=== PATIENT | male | born 1950 | race Caucasian/White ===

== ENCOUNTER 2019-07-02 05:44 | Inpatient (IN) | payer MEDICARE, OTHER ==
[~2019-07-02] VITALS: Ht 182.9 cm; Wt 95.3 kg
[2019-07-02] MEDS ORDERED: Aspir 8181 MG PO (05:56)
[2019-07-02] MEDS ORDERED: WATER PILL? (05:57)
[2019-07-02 06:20] LABS: BASOPHILS ABSOLUTE AUTO 0.03 K/mm3 (0.00-0.23); BASOPHILS PERCENT AUTO 0 % (0-2); EOSINOPHILS ABSOLUTE AUTO 0.03 K/mm3 (0.00-0.68); EOSINOPHILS PERCENT AUTO 0 % (0-6); Hematocrit 39.2 % (37.0-53.0); Hemoglobin 12.7 g/dL (13.5-17.5); IMMATURE GRAN ABSOLUTE AUTO 0.04 K/mm3 (0.00-0.10); IMMATURE GRAN PERCENT AUTO 1 % (0-1); LYMPHOCYTES ABSOLUTE AUTO 3.94 K/mm3 (0.84-5.20); LYMPHOCYTES PERCENT AUTO 51 % (21-46); MONOCYTES ABSOLUTE AUTO 0.57 K/mm3 (0.16-1.47); MONOCYTES PERCENT AUTO 7 % (4-13); Mean Corpuscular HGB Conc 32.4 g/dL (31.5-36.5); Mean Corpuscular Volume 96 fL (80-100); Mean Platelet Volume 9.6 fL (9.1-12.4); NEUTROPHILS ABSOLUTE AUTO 3.16 K/mm3 (1.96-9.15); NEUTROPHILS PERCENT AUTO 41 % (41-73); Platelet Count 255 K/mm3 (150-400); RDW Coefficient Variation 13.2 % (11.7-14.2); RDW Standard Deviation 46.4 fL (35.1-46.3); White Blood Cell Count 7.77 K/mm3 (4.00-11.30)
[2019-07-02 06:25] LABS: Calcium, Ionized (POC) 1.05 mmol/L (1.10-1.46); Chloride (POC) 103 mmol/L (98-108); Creatinine (POC) 0.9 mg/dL (0.8-1.3); Glucose (ISTAT POC) 220 mg/dL (70-99); Hemoglobin (POC) 11.2 g/dL (13.5-17.5); Sodium (POC) 135 mmol/L (135-148); Total CO2 (POC) 23 mmol/L (21-32)
[2019-07-02 06:40] LABS: Alanine Aminotransfer (ALT/SGP 42 U/L (12-78); Albumin, Blood 2.4 g/dL (3.4-5.0); Albumin/Globulin Ratio 0.7 (0.8-1.8); Alk Phos 45 U/L (50-136); Anion Gap 10 mmol/L (6-16); Aspartate Aminotrans (AST/SGOT 21 U/L (12-37); Bilirubin, Total 0.4 mg/dL (0.1-1.0); Blood Urea Nitrogen 33 mg/dL (8-24); Bun/Creatinine Ratio 42.9 (12.0-20.0); CO2, Blood 24 mmol/L (21-32); Chloride, Blood 106 mmol/L (98-108); Creatinine, Blood 0.77 mg/dL (0.60-1.20); Globulin, Blood 3.4 g/dL (2.2-4.0); Glomerular Filtration Rate >60 (60-); Glucose, Blood 240 mg/dL (70-99); Potassium, Blood 4.1 mmol/L (3.5-5.5); Sodium, Blood 140 mmol/L (136-145); Total Protein, Blood 5.8 g/dL (6.4-8.2)
--- NOTE | 2019-07-02 08:40 | NUR ---
echocardiogram completed
[2019-07-02 10:04] LABS: International Normalized Ratio 1.08; Prothrombin Time Results 11.4 Sec (9.7-11.5)
[2019-07-02 12:17] LABS: U Amphetamine Screen Not Detected; U Barbituate Screen Not Detected; U Benzodiazapine Screen Not Detected; U Buprenorphine Screen Not Detected; U Cannabinoids Screen DETECTED; U Cocaine Screen Not Detected; U Methadone Screen Not Detected; U Methamphetamine Screen Not Detected; U Opiates Screen Not Detected; U Oxycodone Screen Not Detected; U Phencyclidine Screen Not Detected; U Propoxyphene Screen Not Detected
[2019-07-02 12:37] LABS: Creatine Kinase MB 1.7 ng/mL (0.0-3.6); Troponin I 0.049 ng/mL (0.000-0.040)
[2019-07-02 13:20] LABS: Adenovirus F 40/41 Not Detected (NOT DETECT); Astrovirus Not Detected (NOT DETECT); Campylobacter Sp Not Detected (NOT DETECT); Cryptosporidium Not Detected (NOT DETECT); Cyclospora Cayetanensis Not Detected (NOT DETECT); E. Coli O157 Not Detected (NOT DETECT); Entamoeba Histolytica Not Detected (NOT DETECT); Enteroaggregative E. coli-EAEC Not Detected (NOT DETECT); Enteropathogenic E. coli-EPEC Detected (NOT DETECT); Enterotoxigenic E. coli-ETEC Not Detected (NOT DETECT); Giardia Lamblia Not Detected (NOT DETECT); Norovirus GI/GII Not Detected (NOT DETECT); Plesiomonas Shigelloides Not Detected (NOT DETECT); Rotavirus A Not Detected (NOT DETECT); Salmonella Sp Not Detected (NOT DETECT); Sapovirus Not Detected (NOT DETECT); Shiga Toxin-prod E. coli-STEC Not Detected (NOT DETECT); Shigella/Enteroin E. coli-EIEC Not Detected (NOT DETECT); Vibrio Cholerae Not Detected (NOT DETECT); Vibrio Sp Not Detected (NOT DETECT); Yersinia Enterocolitica Not Detected (NOT DETECT)
--- NOTE | 2019-07-02 16:20 | NUR ---
SHIFT SUMMARY: PT HAS BEEN RESTING IN BED SINCE ADMIT. hE GOT UP ONCE TO USE THE TOILET AND DENIED ANY DIZZINESS OR WEAKNESS WHEN SITTING OR STANDING UP. HIS HR REMAINS SR, RATE IN THE 90-LOW 100S, BP STABLE WITH SBP 90S AND SBP 70S. EATING WELL. VOIDING IN THE URINAL. NO OTHER REQUESTS AT THIS TIME. CONTINUING TO MONITOR.
--- NOTE | 2019-07-02 18:56 | NUR ---
PT HAS REMAINED NORMOTENSIVE AND HR CONTROLLED. DR. MORENO OK'D PT TO BE MED WITH TELE.
--- NOTE | 2019-07-02 21:32 | NUR ---
START OF SHIFT: REPORT FROM ERIKA GILLESPIE. PT A+O X4, VSS, SIT/SINUS RHYTHM HR 86-102. PT SITTING UP WATCHING TV AT START OF SHIFT, LATER LYING DOWN SLEEPING. PT DENIED PAIN WITH C/O HEART BURN LATER IN SHIFT. PT TEACHING TO SIT UPRIGHT TO HELP RELEIVE HEART BURN. PT STATED TAKES PRILOSEC OUTSIDE OF HOSPITAL. SCHOOL AGE LEAD TEACHER REMAINED AT BEDSIDE AND TRANSFERRED WITH PT TO MEDICAL FLOOR. REPORT CALLED TO ES GILLESPIE PRIOR TO PT TRANSFER. PT MEDICATED WITH SCHEDULED AMIODARONE AND ZOFRAN TO HELP RELIEVE HB AND SLIGHT NAUSEA PRIOR TO TRANSFER TO MEDICAL FLOOR.
--- NOTE | 2019-07-02 21:45 | NUR ---
TRANSFER TO RM 336 PT TRANSFERRED TO 336 VIA WHEELCHAIR WITH HEART MONITOR ATTACHED AND FORM SETTER HELPER AT MY SIDE. PT FEELING SICK TO STOMACH AND IS DIAPHORETIC. ONCE WE GOT HIM INTO RM 336, HE GOT UP TO THE TOILET AND HAD BLACK LIQUID STOOL OUT. ERIKA Coleman; PCU CULLET CRUSHER STATES THE HR ST WITH PVC'S. CALLED LISY MANCINI WITH NEW ORDERS AND PT TO TRANSFER BACK TO ICU PCU STATUS.
[2019-07-02 22:23] LABS: BASOPHILS ABSOLUTE AUTO 0.02 K/mm3 (0.00-0.23); BASOPHILS PERCENT AUTO 0 % (0-2); EOSINOPHILS ABSOLUTE AUTO 0.02 K/mm3 (0.00-0.68); EOSINOPHILS PERCENT AUTO 0 % (0-6); Hematocrit 26.2 % (37.0-53.0); Hemoglobin 8.4 g/dL (13.5-17.5); IMMATURE GRAN ABSOLUTE AUTO 0.03 K/mm3 (0.00-0.10); IMMATURE GRAN PERCENT AUTO 0 % (0-1); LYMPHOCYTES ABSOLUTE AUTO 4.78 K/mm3 (0.84-5.20); LYMPHOCYTES PERCENT AUTO 58 % (21-46); MONOCYTES ABSOLUTE AUTO 0.78 K/mm3 (0.16-1.47); MONOCYTES PERCENT AUTO 9 % (4-13); Mean Corpuscular HGB 31.9 pg (26.0-34.0); Mean Corpuscular HGB Conc 32.1 g/dL (31.5-36.5); Mean Corpuscular Volume 100 fL (80-100); Mean Platelet Volume 9.2 fL (9.1-12.4); NEUTROPHILS ABSOLUTE AUTO 2.69 K/mm3 (1.96-9.15); NEUTROPHILS PERCENT AUTO 32 % (41-73); Platelet Count 209 K/mm3 (150-400); RDW Coefficient Variation 13.2 % (11.7-14.2); RDW Standard Deviation 48.4 fL (35.1-46.3); Red Blood Cell Count 2.63 M/mm3 (4.30-5.90); White Blood Cell Count 8.32 K/mm3 (4.00-11.30)
--- NOTE | 2019-07-02 22:23 | NUR ---
TRANSFER NOTE PT ARRIVED TO THE FLOOR AT 2145 VIA WHEELCHAIR ACCOMPANIED BY DOCUMENTATION ANALYST. PT WAS DIAPHORETIC AND TACHYPNIC UPON ARRIVAL. DOCUMENTATION ANALYST CALLED PHYSICIAN, VITALS WERE OBTAINED AND CHARTED. TELE NOTIFIED US THAT PT WAS TACHYCARDIC WITH "A LOT OF PVCS". PT COMPLAINED OF NEEDING THE TOILET. PT AMUBLATED TO THE TOILET AND HAD A BLACK, LOOSE BM. THIS RN NOTIFIED DOCUMENTATION ANALYST WHO RELAYED IT TO THE PHYSICIAN. DECISION WAS MADE TO SEND PT BACK UP TO ICU. PT WAS TAKEN BACK DOWN STAIRS TO ICU.
[2019-07-02 22:37] LABS: International Normalized Ratio 1.27; Prothrombin Time Results 13.2 Sec (9.7-11.5)
[2019-07-02 22:41] LABS: Anion Gap 7 mmol/L (6-16); Blood Urea Nitrogen 48 mg/dL (8-24); Bun/Creatinine Ratio 70.3 (12.0-20.0); CO2, Blood 26 mmol/L (21-32); Calcium, Blood 7.3 mg/dL (8.5-10.1); Chloride, Blood 111 mmol/L (98-108); Creatinine, Blood 0.68 mg/dL (0.60-1.20); Glomerular Filtration Rate >60 (60-); Glucose, Blood 187 mg/dL (70-99); Potassium, Blood 3.9 mmol/L (3.5-5.5); Sodium, Blood 144 mmol/L (136-145); Troponin I 0.045 ng/mL (0.000-0.040)
--- NOTE | 2019-07-02 23:09 | NUR ---
UPDATE: PT TAKEN TO 3RD FLOOR VIA W/C WITH IMPLEMENTATION CONSULTANT TARYN TRANSFERRING. PT APPARENTLY BECAME DIAPHORETIC, PALE, AND WITH SIT HR IN THE 120'S WITH SEVERAL PVC'S. PER TARYN RN, PT HAD BM WHILE IN ROOM 336 AND WAS BLACK BUT WAS IN TOILET SO WAS NOT SENT. HOSPITALIST NOTIFIED WHILE PT ON THIRD FLOOR AND WAS READMITTED TO ICU FOR GI BLEED. ONCE IN ICU ROOM 1, HOSPITALIST LISY CAME TO BEDSIDE AND PERFORMED GUIAC STOOL WHICH WAS POSITIVE. EKG DONE AND REPORTED TO HOSPITALIST, LABS DRAWN, FLUID BOLUS NS 500mL GIVEN, AND PROTONIX BOLUS AND gtt GIVEN. PT C/O SOME ABDOMINAL PAIN BUT DENIED CP. PT CURRENLTY SLEEPING, VSS, BUFFING AND SUEDING MACHINE OPERATOR REMAINS AT BEDSIDE.
--- NOTE | 2019-07-02 23:42 | NUR ---
HOSPITALIST NOTIFIED: RE LAB RESULTS, NO NEW ORDERS AT THIS TIME.
--- NOTE | 2019-07-03 02:55 | NUR ---
HOSPITALIST NOTIFIED: PT C/O INCREASED ABDOMINAL PRESSURE AND NAUSEA ALONG WITH URGENCY TO HAVE BM. WHILE ON PHONE WITH HOSPITALIST, PT WITH MAROON EMESIS OUT. FILTRATION SUPERVISOR IN ROOM. HOSPITALIST PLACING ORDERS. GIVE SECOND UNIT OF PRBC AND CONTINUE WITH H&H AND AM LABS. NEW ORDERS TO CHANGE ODT ZOFRAN TO IV AND TO GIVE FIRST PRIOR TO REGLAN.
[2019-07-03 03:50] LABS: BASOPHILS ABSOLUTE AUTO 0.01 K/mm3 (0.00-0.23); BASOPHILS PERCENT AUTO 0 % (0-2); EOSINOPHILS PERCENT AUTO 0 % (0-6); Hematocrit 22.8 % (37.0-53.0); Hemoglobin 7.5 g/dL (13.5-17.5); IMMATURE GRAN ABSOLUTE AUTO 0.06 K/mm3 (0.00-0.10); IMMATURE GRAN PERCENT AUTO 1 % (0-1); LYMPHOCYTES PERCENT AUTO 27 % (21-46); MONOCYTES ABSOLUTE AUTO 0.41 K/mm3 (0.16-1.47); MONOCYTES PERCENT AUTO 5 % (4-13); Mean Corpuscular HGB 32.9 pg (26.0-34.0); Mean Corpuscular HGB Conc 32.9 g/dL (31.5-36.5); Mean Corpuscular Volume 100 fL (80-100); NEUTROPHILS ABSOLUTE AUTO 5.51 K/mm3 (1.96-9.15); NEUTROPHILS PERCENT AUTO 67 % (41-73); Platelet Count 181 K/mm3 (150-400); RDW Coefficient Variation 13.2 % (11.7-14.2); RDW Standard Deviation 48.2 fL (35.1-46.3); Red Blood Cell Count 2.28 M/mm3 (4.30-5.90); White Blood Cell Count 8.19 K/mm3 (4.00-11.30)
[2019-07-03 04:01] LABS: Anion Gap 9 mmol/L (6-16); Blood Urea Nitrogen 54 mg/dL (8-24); Bun/Creatinine Ratio 70.9 (12.0-20.0); CHOL/HDL RATIO 3.7; CO2, Blood 20 mmol/L (21-32); Chloride, Blood 114 mmol/L (98-108); Cholesterol 56 mg/dL (50-200); Creatinine, Blood 0.76 mg/dL (0.60-1.20); Glomerular Filtration Rate >60 (60-); Glucose, Blood 291 mg/dL (70-99); HDL Cholesterol 15 mg/dL (>39); LDL/HDL RATIO 1.4; Low Density Lipoprotein Chol 21 mg/dL (0-110); Magnesium, Blood 1.7 mg/dL (1.6-2.4); Phosphorus, Blood 2.2 mg/dL (2.5-4.9); Potassium, Blood 5.2 mmol/L (3.5-5.5); Sodium, Blood 143 mmol/L (136-145); Triglycerides 100 mg/dL (30-160); Very Low Density Lipoprot Chol 20 mg/dL (6-32)
--- NOTE | 2019-07-03 06:54 | NUR ---
DR. AVALOS AT BEDSIDE.
--- NOTE | 2019-07-03 08:30 | NUR ---
INITIAL ASSESSMENT PATIENT SLEEPING IN BED SOUNDLY UPON ENTERING ROOM. PATIENT ALERT AND ORIENTED X 4, AFEBRILE. PUPILS 7+ AND REACT BRISKLY TO LIGHT. PATIENT ON BEDREST HAS BEEN HAVING SYNCOPAL EPISODES PRIOR TO ADMIT AND WHEN GETTING OOB TO COMMODE DURING NIGHT PER DRUPAL DEVELOPER NURSE. PATIENT DENIES PAIN AT THIS TIME. PATIENT SATTING 90% AND GREATER ON RA. LUNGS CLEAR IN UPPER LOBES AND DIMINISHED IN LOWER LOBES. PATIENT IN SR WITH BBB. HR IN THE 90S. SBP IN THE 90S, MAP GREATER THAN 65. PULSES FAINT TO PALPATION. ANTIEMBOLISM STOCKINGS IN PLACE. ABDOMEN MILDLY DISTENDED, SOFT, WITH HYPERACTIVE BS. PATIENT STATES THAT "STOMACH FEELS TIGHT". PATIENT IS HAVING MAROON/ BLACK/ TARRY, LOOSE STOOLS THIS AM. PATIENT NPO FOR SCOPE TODAY. WNL- URINAL AT BEDSIDE. SCAB NOTED TO LOWER BACK, OTHERWISE SKIN C/D/I. NS TKO, AMIODARONE DRIP STARTED AT 1 MG/ MINUTE, PROTONIX AT 10 MLS/ HOUR. BED LOW, CALL LIGHT IN REACH. WILL CONTINUE TO MONITOR PATIENT FREQUENTLY THROUGHOUT SHIFT.
[2019-07-03 08:36] LABS: Hemoglobin 8.7 g/dL (13.5-17.5); Mean Corpuscular HGB 32.3 pg (26.0-34.0); Mean Corpuscular HGB Conc 33.5 g/dL (31.5-36.5); Mean Platelet Volume 9.8 fL (9.1-12.4); Platelet Count 177 K/mm3 (150-400); RDW Coefficient Variation 14.3 % (11.7-14.2); RDW Standard Deviation 50.1 fL (35.1-46.3); Red Blood Cell Count 2.69 M/mm3 (4.30-5.90); White Blood Cell Count 7.95 K/mm3 (4.00-11.30)
[2019-07-03 08:38] LABS: Mean Corpuscular Volume 97 fL (80-100)
--- NOTE | 2019-07-03 10:15 | NUR ---
DR. RENAETRATE IN TO SEE PATIENT.
--- NOTE | 2019-07-03 11:35 | NUR ---
PATIENT SLEEPING SOUNDLY IN BED. PATIENT AFEBRILE. NO PAIN/ DISCOMFORT NOTED. VITAL SIGNS STABLE. NO ACUTE CHANGES TO NOTE ON AT THIS TIME. WILL CONTINUE TO MONITOR.
[2019-07-03] MEDS ORDERED: METO100ER PO (11:38)
[2019-07-03] MEDS ORDERED: FURO40 PO (11:39)
[2019-07-03] MEDS ORDERED: LOSA25 PO (11:40)
--- NOTE | 2019-07-03 13:10 | NUR ---
PATIENT TAKEN FOR SCOPE BY OR NURSES.
--- NOTE | 2019-07-03 13:29 | NUR ---
INTO SDS VIA GURNEY. SKIN VERY PALE. PT REPORTS NAUSEA AND FEELING"LIKE MY STOMACH IS GOING TO EXPLODE. MED WITH REGLAN PER DR. HANSEN ORDER. NPO STATUS CONFIRMED. HISTORY AND ALLERGIES REWIEWED. LUNGS DIMINISHED IN THE BASES-SATS>90% ON RA. ECG SHOWS SR WITH RATE 80'S. AMIODARONE DRIP CONTINUES AT 1MG/MIN.
--- NOTE | 2019-07-03 14:01 | NUR ---
07/03/19 1401 Bony Gentile Bite Block PlacedPatient to ENDO 1MONITOR INTACT WITH CONTINUOUS PULSE OXIMETRY AND INTERMITTENT BP.O2 VIA N/C INTACT THROUGHOUT SEDATION/PROCEDURE.See Anesthesia record.
[2019-07-03 15:27] LABS: BASOPHILS ABSOLUTE AUTO 0.02 K/mm3 (0.00-0.23); BASOPHILS PERCENT AUTO 0 % (0-2); EOSINOPHILS PERCENT AUTO 0 % (0-6); Hematocrit 22.6 % (37.0-53.0); Hemoglobin 7.4 g/dL (13.5-17.5); IMMATURE GRAN ABSOLUTE AUTO 0.15 K/mm3 (0.00-0.10); IMMATURE GRAN PERCENT AUTO 1 % (0-1); LYMPHOCYTES PERCENT AUTO 38 % (21-46); MONOCYTES ABSOLUTE AUTO 0.88 K/mm3 (0.16-1.47); MONOCYTES PERCENT AUTO 8 % (4-13); Mean Corpuscular HGB 32.9 pg (26.0-34.0); Mean Corpuscular HGB Conc 32.7 g/dL (31.5-36.5); NEUTROPHILS ABSOLUTE AUTO 6.21 K/mm3 (1.96-9.15); NEUTROPHILS PERCENT AUTO 53 % (41-73); NRBC ABSOLUTE 0.02 K/mm3 (0.00-0.02); NRBC Auto 0.2 /100 WBC (0.0-0.2); RDW Coefficient Variation 14.8 % (11.7-14.2); RDW Standard Deviation 53.8 fL (35.1-46.3); Red Blood Cell Count 2.25 M/mm3 (4.30-5.90); White Blood Cell Count 11.66 K/mm3 (4.00-11.30)
[2019-07-03 15:42] LABS: Mean Corpuscular Volume 100 fL (80-100); Mean Platelet Volume 10.8 fL (9.1-12.4); Platelet Count 164 K/mm3 (150-400)
[2019-07-03 15:49] LABS: Alanine Aminotransfer (ALT/SGP 28 U/L (12-78); Albumin, Blood 1.9 g/dL (3.4-5.0); Albumin/Globulin Ratio 0.8 (0.8-1.8); Alk Phos 28 U/L (50-136); Anion Gap 9 mmol/L (6-16); Aspartate Aminotrans (AST/SGOT 35 U/L (12-37); Bilirubin, Total 0.3 mg/dL (0.1-1.0); Blood Urea Nitrogen 54 mg/dL (8-24); Bun/Creatinine Ratio 69.6 (12.0-20.0); CO2, Blood 19 mmol/L (21-32); Calcium, Blood 7.1 mg/dL (8.5-10.1); Chloride, Blood 117 mmol/L (98-108); Creatinine, Blood 0.78 mg/dL (0.60-1.20); Globulin, Blood 2.3 g/dL (2.2-4.0); Glomerular Filtration Rate >60 (60-); Glucose, Blood 296 mg/dL (70-99); Potassium, Blood 5.8 mmol/L (3.5-5.5); Sodium, Blood 145 mmol/L (136-145); Total Protein, Blood 4.2 g/dL (6.4-8.2)
[2019-07-03 16:23] LABS: International Normalized Ratio 1.19; Prothrombin Time Results 12.4 Sec (9.7-11.5)
[2019-07-03 17:28] LABS: Source, Urine Catheter
[2019-07-03 17:33] LABS: Bilirubin, Urine Neg (Neg); Blood, Urine Neg (Neg); Glucose Qualitative, Urine 4+ (Neg); Ketones, Urine 1+ (Neg); Leukocyte Esterase, Urine Neg (Neg); Nitrite, Urine Neg (Neg); Protein, Urine 1+ (Neg); Specific Gravity, Urine 1.015 (1.003-1.022); Urobilinogen, Urine NORM (Normal)
[2019-07-03 17:39] LABS: Appearance, Urine Clear (Clear); Color, Urine Yellow (P-Yellow)
--- NOTE | 2019-07-03 19:03 | NUR ---
SHIFT SUMMARY THIS AM, PATIENT A&O X 4, AFEBRILE. PATIENT PLEASANT AND COOPERATIVE. SATTING WELL ON RA, LUNGS CLEAR T/O. IN SR WITH BBB, HR 80S TO 90S. BP STABLE. PATIENT COMPLAINED OF ABDOMEN FEELING "TIGHT" AND HAD TWO LOOSE, BLACK/ MAROON/ TARRY STOOLS. PATIENT WAS VOIDING WELL INTO BEDSIDE URINAL. PATIENT NPO FOR PLANNED EGD PROCEDURE. PATIENT ON AMIO AT 1 MG/ MINUTE AND PROTONIX AT 10 MLS/ HOUR. PATIENT TAKEN TO EGD AROUND 1300. PATIENT ARRIVED BACK TO ICU AROUND 1450. DR. HANSEN REPORTS THAT NO INTERVENTIONS WERE PERFORMED AND THAT PATIENT VOMITED AND APPEARED TO HAVE ASPIRATED. PATIENT ON VENTILATOR WHEN ARRIVED- SETTINGS AC 14, TV 450, PEEP 5, 50% FIO2. NO SEDATION- PATIENT APPEARING TO NOT BE TOLERATING ETT WELL. PATIENT COUGHING CONSISTENTLY. RITA RED, THICK SPUTUM BEING SUCTIONED FROM MOUTH. THICK, MAROON BLOOD BEING SUCTIONED FROM ETT. LUNGS COARSE AND DIMINISHED T/O, EVEN AFTER SUCTIONING. PATIENT GIVEN 2MG VERSED TO HELP RELAX AND TOLERATE VENT. PROPOFOL ALSO STARTED. AGITATION AND INTOLERANCE CONTINUED, HOWEVER PATIENT BECAME HYPOTENSIVE. SEDATION PLACED ON STANDBY. NS GIVEN. PICC LINE STARTED BY SHIRLEY PRAKASH AND CHARGE NURSE, ALEJO STEWARD. LEVOPHED AND PROPOFOL STARTED. BETANCOURT PLACED AND DRAINING DARK YELLOW URINE. PATIENT RESTING QUIETLY IN BED AT THIS TIME. NO SIGNS OF PAIN. LEVOPHED AT 10 MCG/ MINUTE, PROPOFOL AT 50 MCG/ KG/ MINUTE, NS TKO, AMIODARONE AT 0.5 MG/ MINUTE, AND PROTONIX AT 10 MLS/ HOUR. BED LOW, CALL LIGHT IN REACH. REPORT HAS BEEN GIVEN TO ASSUMING NURSE, GIULIANA SEGURA.
--- NOTE | 2019-07-03 19:30 | NUR ---
ASSUMED CARE PT INTUBATED POST EGD WHERE PT HAD EPISODE OF EMESIS WITH ASPIRATION. CURRENT VENT SETTINGS AT AC14/450/5/50%. SEATION VIA PROPOFOL AT 50MCG/KG/MIN. PT RESPONDS TO NOXIOUS STIM BUT IS NOT CURRENTLY FOLLOWING COMMANDS. LEVOPHED AT 8MCG/MIN, AMIODARONE AT 0.5MG/MIN AND TO REMAIN ON UNTIL BAG COMPLETE, PROTONIX AT 10ML/HR AND NS TKO. OG TO LIS, FLUSHED D/T THICK CLOTTED BLOOD IN TUBING. F/C IN PLACE WITH CLEAR YELLOW URINE. PLAN TO RECHEC H&H AT 1999 AND TITRATE LEVOPHED DOWNWARD IF BP TOLERATES.
[2019-07-03 20:09] LABS: Hematocrit 22.3 % (37.0-53.0); Hemoglobin 7.7 g/dL (13.5-17.5); Mean Corpuscular HGB 33.5 pg (26.0-34.0); Mean Corpuscular HGB Conc 34.5 g/dL (31.5-36.5); Platelet Count 197 K/mm3 (150-400); RDW Coefficient Variation 14.7 % (11.7-14.2); RDW Standard Deviation 52.3 fL (35.1-46.3); White Blood Cell Count 12.64 K/mm3 (4.00-11.30)
[2019-07-03 20:10] LABS: Mean Corpuscular Volume 97 fL (80-100)
[2019-07-04 03:19] LABS: Hematocrit 21.8 % (37.0-53.0); Hemoglobin 7.3 g/dL (13.5-17.5); Mean Corpuscular HGB 32.7 pg (26.0-34.0); Mean Corpuscular HGB Conc 33.5 g/dL (31.5-36.5); Mean Corpuscular Volume 98 fL (80-100); Mean Platelet Volume 9.7 fL (9.1-12.4); Platelet Count 194 K/mm3 (150-400); RDW Coefficient Variation 14.7 % (11.7-14.2); RDW Standard Deviation 52.3 fL (35.1-46.3); Red Blood Cell Count 2.23 M/mm3 (4.30-5.90); White Blood Cell Count 12.23 K/mm3 (4.00-11.30)
[2019-07-04 03:38] LABS: Alanine Aminotransfer (ALT/SGP 26 U/L (12-78); Albumin, Blood 2.2 g/dL (3.4-5.0); Albumin/Globulin Ratio 0.9 (0.8-1.8); Alk Phos 27 U/L (50-136); Anion Gap 8 mmol/L (6-16); Aspartate Aminotrans (AST/SGOT 20 U/L (12-37); Bilirubin, Total 0.2 mg/dL (0.1-1.0); Blood Urea Nitrogen 51 mg/dL (8-24); Bun/Creatinine Ratio 49.5 (12.0-20.0); CO2, Blood 20 mmol/L (21-32); Calcium, Blood 7.5 mg/dL (8.5-10.1); Chloride, Blood 114 mmol/L (98-108); Creatinine, Blood 1.03 mg/dL (0.60-1.20); Globulin, Blood 2.4 g/dL (2.2-4.0); Glomerular Filtration Rate >60 (60-); Glucose, Blood 343 mg/dL (70-99); Magnesium, Blood 1.8 mg/dL (1.6-2.4); Potassium, Blood 4.5 mmol/L (3.5-5.5); Sodium, Blood 142 mmol/L (136-145); Total Protein, Blood 4.6 g/dL (6.4-8.2)
--- NOTE | 2019-07-04 06:09 | NUR ---
SHIFT SUMMARY PT REMAINS INTUBATED AT AC14/450/5/25%. SEDATED VIA PROPOFOL AT 45MCG/KG/MIN. INCREASED COUGHING NOTED WHEN ON LEFT SIDE, SECRETIONS LOOK TO BE OLD BLOOD. PT RESPONDS TO PAIN BUT NO SBT DONE D/T PRESSOR REQUIREMENTS AND RR >30. LEVOPHED INITIALLY TITRATED DOWN BUT HAD TO TITRATE BACK UP D/T MAPS <60 AND IS CURRENTLY AT 15MCG/MIN. NO BM AND ONLY SCANT AMOUNT FROM OG THIS SHIFT, PROTONIX REMAINS AT 10ML/HR. AMIODARONE OFF AT 0315, PT REMAINS IN SR.
--- NOTE | 2019-07-04 08:00 | NUR ---
INITITAL ASSESSMENT PATIENT INTUBATED AND SEDATED. PATIENT RESPONDING TO PAINFUL STIMULI. PATIENT LOCALIZING MOVEMENTS. PATIENT AFEBRILE. PATIENT HAS NO SIGNS OF PAIN OR DISCOMFORT AT THIS TIME. PATIENT ON VENT SETTINGS AC 14, TV 450, PEEP 5, 25% FIO2. LUNGS CLEAR IN UPPER LOBES, DIMINISHED IN LOWER LOBES. YELLOW AND OLD BLOOD TINGED SPUTUM FROM ETT. PATIENT IN SR WITH BBB WITH PROLONGED QT. HR IN THE 70S. BP STABLE ON LEVOPHED. PULSES FAINT. ANTI-EMBOLISM STOCKINGS IN PLACE. ABDOMEN MILDLY DISTENDED, SOFT, WITH TYMPANIC BOWEL SOUNDS. OG TO LIS- DRAINAGE BLACK/ MAROON IN COLOR, SMALL AMOUNT. BETANCOURT DRAINING DARK YELLOW URINE. SCAB TO LOWER BACK. OTHERWISE SKIN C/D/I. PROPOFOL INFUSING AT 45 MCG/ KG/ MINUTE, LEVOPHED AT 15 MCG/ MINUTE, NS TKO, PROTONIX AT 10 MLS/ HOUR. BED LOW, CALL LIGHT IN REACH. WILL CONTINUE TO MONITOR FREQUENTLY THROUGHOUT SHIFT.
--- NOTE | 2019-07-04 09:34 | NUR ---
SPOKE TO DR. AVALOS CONCERNING AMIODARONE NEW ORDER APPEARED EDITED FROM PHARMACY AND FROM ANOTHER IT CONSULTING MANAGER THIS AM. AMIODARONE INFUSING COMPLETE DURING NIGHT. DR. AVALOS STATED TO CONTINUE AMIODARONE DRIP AT 0.5 MG/ MINUTE UNTIL FURTHER ORDERS RECEIVED. INFORMED THAT HEMOGLOBIN 7.3. NO ORDER RECEIVED AT THIS TIME.
--- NOTE | 2019-07-04 10:21 | NUR ---
SPOKE TO DR. JANAY BURGOS AND UPDATED ON PATIET STATUS. INFORMED THAT PATIENT HAD TMAX OF 100 DEGREES FAHRENHEIT DURING NIGHT. INFORMED THAT LEVOPHED DRIP RANGED FROM 5 TO 15 MCG/ MINUTE DURING NIGHT. INFORMED THAT LEVOPHED 14 TO 15 MCG/ MINUTE AT THIS TIME. INFORMED THAT NURSE SPOKE WITH DR. HANSEN, DR. MORENO AND DR. AVALOS THIS AM FOR HEMOGLOBIN OF 7.3 THIS AM. NO ORDERS OBTAINED FOR BLOOD TRANSFUSION AT THIS TIME. INFORMED THAT 650 MLS OF URINE OUT DURING NIGHT. NO ORDERS OBTAINED AT THIS TIME. WILL CONTINUE TO MONITOR.
[2019-07-04 11:25] LABS: Hematocrit 21.9 % (37.0-53.0); Hemoglobin 7.4 g/dL (13.5-17.5); Mean Corpuscular HGB 32.5 pg (26.0-34.0); Mean Corpuscular HGB Conc 33.8 g/dL (31.5-36.5); Mean Corpuscular Volume 96 fL (80-100); NRBC ABSOLUTE 0.03 K/mm3 (0.00-0.02); NRBC Auto 0.3 /100 WBC (0.0-0.2); Platelet Count 193 K/mm3 (150-400); RDW Coefficient Variation 14.7 % (11.7-14.2); RDW Standard Deviation 50.7 fL (35.1-46.3); Red Blood Cell Count 2.28 M/mm3 (4.30-5.90); White Blood Cell Count 10.54 K/mm3 (4.00-11.30)
--- NOTE | 2019-07-04 12:00 | NUR ---
PATIENT REMAINS INTUBATED AND SEDATED. PATIENT REMAINS SATTING WELL ON SAME VENT SETTINGS. VITAL SIGNS REMAIN STABLE. LEVOPHED AT 12 MCG/ MINUTE, PROPOFOL AT 40 MCG/ KG/ MINUTE, NS TKO, PROTONIX AT 10 MLS/ HOUR, AMIO AT 0.5 MG/ MINUTE. NO OTHER ACUTE CHANGES TO NOTE ON AT THIS TIME. WILL CONTINUE TO MONITOR.
--- NOTE | 2019-07-04 15:52 | NUR ---
07/04/19 1552 Jeremiah Ballesteros 3-LEAD EKG REVIEWED WITH PHYSICIAN PRIOR TO START OF PROCEDURE.MONITOR INTACT WITH CONTINUOUS PULSE OXIMETRY AND INTERMITTENT BP.History, Chart, Medications and Allergies reviewed before start of procedure. History, Chart, Medications and Allergies reviewed before start of procedure.O2 VIA VENT INTACT THROUGHOUT SEDATION/PROCEDURE. CONSENT VIA PHONE FROM RELATIVES X2 WITH WITNESS OF TRAVEL CONSULTANT
--- NOTE | 2019-07-04 16:10 | NUR ---
EGD COMPLETE. DR. HANSEN STATES THERE WERE 2 DUODENOL ULCERS. INJECTED EPI AND CAUTERIZED. DR. HANSEN UPDATED PATIENT'S SIGNIFICANT OTHER AND SISTER.
--- NOTE | 2019-07-04 16:40 | NUR ---
PATIENT REMAINS INTUBATED AND SEDATED. PATIENT RESPONDING MINIMALLY TO PAINFUL STIMULI. PATIENT JUST FINISHED WITH UPPER SCOPE. PATIENT HAS NO SIGNS OF PAIN. PATIENT HAS TEMP OF 99.6 DEGREES FAHRENHEIT. PATIENT REMAINS SATTING WELL ON SAME VENT SETTINGS. PATIENT REMAINS IN SR WITH BBB. HR 70 TO 80S. BP STABLE. LEVOPHED ON STANDBY SINCE DURING EGD. PROPOFOL AT 50 MCG/ KG/ MINUTE. NO OTHER ACUTE CHANGES TO NOTE ON AT THIS TIME. WILL CONTINUE TO MONITOR.
[2019-07-04 18:56] LABS: Hematocrit 20.8 % (37.0-53.0); Mean Corpuscular HGB 33.7 pg (26.0-34.0); Mean Corpuscular HGB Conc 33.7 g/dL (31.5-36.5); Mean Platelet Volume 9.9 fL (9.1-12.4); NRBC ABSOLUTE 0.05 K/mm3 (0.00-0.02); NRBC Auto 0.5 /100 WBC (0.0-0.2); Platelet Count 166 K/mm3 (150-400); RDW Coefficient Variation 14.8 % (11.7-14.2); RDW Standard Deviation 53.4 fL (35.1-46.3); Red Blood Cell Count 2.08 M/mm3 (4.30-5.90)
[2019-07-04 18:57] LABS: Mean Corpuscular Volume 100 fL (80-100)
--- NOTE | 2019-07-04 19:30 | NUR ---
ASSUMED CARE REPORT AND ASSESSMENT COMPLETED. PT S/P #2 EGD TODAY WITH CAUTERIZATION OF DUODENAL ULCERS X 2. PT REMAINS INTUBATED AT AC14/450/5/25%, SEDATED WITH PROPOFOL AT 50MCG/KG/MIN. PT DOES RESPOND TO NOXIOUS STIM. PROTONIX AT 10ML/HR, LEVOPHED INCREASED FROM 4 TO 7MCG/MIN D/T MAP <60. AMIODARONE AT 0.5MG/MIN WITH PLANS PER DR AVALOS TO CONTINUE UNTIL PT ABLE TO TAKE PO MEDS. VSS, ECG SHOWS SR, O2 SATS MID 90'S. SBT PLANNED FOR AM, DISCUSSED WITH RT. UPDATE TO PT'S SISTER VIA PHONE ON TODAY'S EVENTS AND PLAN FOR SBT IN AM. SHE PLANS TO COME VISITY TOMORROW.
--- NOTE | 2019-07-04 19:34 | NUR ---
SHIFT SUMMARY PATIENT REMAINED INTUBATED AND SEDATED T/O SHIFT. PATIENT RESPONDED TO PAINFUL STIMULI MOST OF THE SHIFT. LOCALIZING MOVEMENTS. PATIENT HAD TMAX OF 99.6 DEGREES FAHRENHEIT. PATIENT HAD NO SIGNS OF PAIN DURING SHIFT. PATIENT REMAINED SATTING 90% AND GREATER ON VENT SETTINGS OF AC 14, TV450, PEEP 5, FIO2 25%. PATIENT REMAINED IN SR WITH BBB AND PROLONGED QT. HR 70S TO 80S. BP REMAINED STABLE ON LEVOPHED. LEVOPHED TITRATED FROM SB TO 14 MCG/ MINUTE DURING SHIFT. NO BM THIS SHIFT. PATIENT HAD MINIMAL MAROON DRAINAGE FROM OG TO LIS. BETANCOURT DRAINING DARK YELLOW URINE. NO CHANGE IN SKIN. PATIENT REPOSITIONED T/O SHIFT. LEVOPHED CURRENTLY AT 7 MCG/ MINUTE, PROPOFOL AT 50 MCG/ KG/ MINUTE, NS TKO, PROTONIX AT 10 MLS/ HOUR, AMIODARONE AT 0.5 MG/ MIN. PATIENT STARTED ON Q6H CHEMBGS AND ASHLEE INSULIN TODAY. PATIENT HAD EGD AND WAS FOUND TO HAVE 2 DUODENOL ULCERS- BOTH INJECTED WITH EPI AND CAUTERIZED. BED LOW, CALL LIGHT IN REACH. REPORT HAS BEEN GIVEN TO ASSUMING INSTRUCTOR NURSE NURSE.
[2019-07-05 00:35] LABS: BASOPHILS ABSOLUTE AUTO 0.01 K/mm3 (0.00-0.23); BASOPHILS PERCENT AUTO 0 % (0-2); EOSINOPHILS PERCENT AUTO 0 % (0-6); Hematocrit 20.3 % (37.0-53.0); Hemoglobin 6.7 g/dL (13.5-17.5); IMMATURE GRAN PERCENT AUTO 1 % (0-1); LYMPHOCYTES ABSOLUTE AUTO 2.41 K/mm3 (0.84-5.20); LYMPHOCYTES PERCENT AUTO 23 % (21-46); MONOCYTES ABSOLUTE AUTO 0.76 K/mm3 (0.16-1.47); MONOCYTES PERCENT AUTO 7 % (4-13); Mean Corpuscular HGB 33.2 pg (26.0-34.0); Mean Corpuscular Volume 101 fL (80-100); Mean Platelet Volume 9.7 fL (9.1-12.4); NEUTROPHILS PERCENT AUTO 68 % (41-73); NRBC ABSOLUTE 0.08 K/mm3 (0.00-0.02); NRBC Auto 0.8 /100 WBC (0.0-0.2); Platelet Count 177 K/mm3 (150-400); RDW Standard Deviation 53.5 fL (35.1-46.3); Red Blood Cell Count 2.02 M/mm3 (4.30-5.90); White Blood Cell Count 10.38 K/mm3 (4.00-11.30)
--- NOTE | 2019-07-05 00:43 | NUR ---
CALL TO DR MOMIN UPDATED ON MOST RECENT H&H, CURRENTLY AT 6.7 AND INCREASE ON LEVOPHED FROM 4-10MCG/MIN. ORDER TO TRANSFUSE 1 UNIT PRBC OBTAINED.
--- NOTE | 2019-07-05 03:13 | NUR ---
SBT/SEDATION VACATION PROPOFOL OFF. PT OPENS EYES AND FOLLOWS SIMPLE COMMANDS, RT IN ROOM, SBT STARTED.
--- NOTE | 2019-07-05 03:46 | NUR ---
SBT COMPLETE PT TOLERATED SBT WELL, NEEDED SOME COACHING TO SLOW RATE. PT HAD GOOD VT'S AND O2 SATS THROUGOUT. SEE RT FLOW SHEET FOR ADDITIONAL DETAILS. PT RESEDATED-SEE ICU FLOW SHEET.
[2019-07-05 04:43] LABS: BASOPHILS ABSOLUTE AUTO 0.01 K/mm3 (0.00-0.23); BASOPHILS PERCENT AUTO 0 % (0-2); EOSINOPHILS PERCENT AUTO 0 % (0-6); Hematocrit 22.7 % (37.0-53.0); Hemoglobin 7.6 g/dL (13.5-17.5); IMMATURE GRAN ABSOLUTE AUTO 0.13 K/mm3 (0.00-0.10); IMMATURE GRAN PERCENT AUTO 2 % (0-1); LYMPHOCYTES ABSOLUTE AUTO 1.96 K/mm3 (0.84-5.20); LYMPHOCYTES PERCENT AUTO 25 % (21-46); MONOCYTES ABSOLUTE AUTO 0.63 K/mm3 (0.16-1.47); MONOCYTES PERCENT AUTO 8 % (4-13); Mean Corpuscular HGB Conc 33.5 g/dL (31.5-36.5); Mean Corpuscular Volume 99 fL (80-100); Mean Platelet Volume 9.4 fL (9.1-12.4); NEUTROPHILS ABSOLUTE AUTO 5.15 K/mm3 (1.96-9.15); NEUTROPHILS PERCENT AUTO 65 % (41-73); NRBC ABSOLUTE 0.12 K/mm3 (0.00-0.02); NRBC Auto 1.5 /100 WBC (0.0-0.2); Platelet Count 148 K/mm3 (150-400); RDW Coefficient Variation 15.3 % (11.7-14.2); RDW Standard Deviation 53.9 fL (35.1-46.3); White Blood Cell Count 7.88 K/mm3 (4.00-11.30)
[2019-07-05 05:01] LABS: Alanine Aminotransfer (ALT/SGP 20 U/L (12-78); Albumin, Blood 2.2 g/dL (3.4-5.0); Albumin/Globulin Ratio 0.8 (0.8-1.8); Alk Phos 29 U/L (50-136); Anion Gap 9 mmol/L (6-16); Aspartate Aminotrans (AST/SGOT 22 U/L (12-37); Bilirubin, Total 0.5 mg/dL (0.1-1.0); Blood Urea Nitrogen 32 mg/dL (8-24); Bun/Creatinine Ratio 33.3 (12.0-20.0); CO2, Blood 22 mmol/L (21-32); Calcium, Blood 7.5 mg/dL (8.5-10.1); Chloride, Blood 111 mmol/L (98-108); Creatinine, Blood 0.96 mg/dL (0.60-1.20); Globulin, Blood 2.8 g/dL (2.2-4.0); Glomerular Filtration Rate >60 (60-); Glucose, Blood 267 mg/dL (70-99); Potassium, Blood 4.2 mmol/L (3.5-5.5); Sodium, Blood 142 mmol/L (136-145)
--- NOTE | 2019-07-05 06:11 | NUR ---
SHIFT SUMMARY PT REMAINS INTUBATED-NO CHANGE TO PREVIOUSLY NOTED VENT SETTINGS. SEDATED VIA PROPOFOL AT 40MCG/KG/MIN. HAVE BEEN ABLE TO TITRATE LEVOPHED DOWN FROM 10MCG/MIN AFTER 1 UNIT PRBC AND IS NOW ON STANDBY. PROTONIX AT 10ML/HR, NS TKO AND AMIODARONE AT 0.5MG/MIN. OG OUTPUT OF DARK/DIGESTED BLOOD OF 50ML, NO STOOL THIS SHIFT. VSS, ECG SHOWS SR/SB WITH PROLONGED QT >0.50.
--- NOTE | 2019-07-05 07:42 | NUR ---
Recieved report from Kaia GILLESPIE. [place] on left side with HOB at 30 degrees. He responds to nocious stimuli. He has OG tube in place that came out a little bit and with assist of RT deflating balloon was able to readvance to taped position. OG on LIS, no current output. He is intubated and on sedation. ET 8.0 and 26cm at gums with settings AC 14, TV 450, FiO2 25%, Peep 5.0 and stats 94%. He has PICC line in RICHA dressing intact and site WNL's and is infusing Levophed 2 mcg/min to maintain MAP >65 and systolic 106/57 with MAP 68. He is also infusing 40 mcg/kg/min of Propofol and is arouseable. 3rd med infusing through PICC is Amiodarone 0.5 mg/min and to be continued per Dr Phillips. He also has PowerGlide in CECI dressing intact and site WNL's and is infusing Protonix at 10ml/hr. He has 16Fr. Schaffer draining to gravity yellow colored urine. He has TEDS bilateral LE's. He is in bilateral soft wrist for safet of lines and tubes, released for brief time to check skin and circulation and reapplied. Temp. 97.4 temporal. HR 50-[address] Cabantrate by to see patient no new orders.
--- NOTE | 2019-07-05 09:27 | NUR ---
Dr Phillips has reduced Amiodarone to 0.25mg/hr and I have place Propofol on hold for possible extubation. Levophed still at 2 mcg/min, systolic 94.
--- NOTE | 2019-07-05 09:49 | NUR ---
0940 patient placed on spon. PS 10 and doing well sats 94%, 0947 extubated and placed on 4L O2 via NC and continues to sat mid 90%'s. Dr Boyd Notified.
--- NOTE | 2019-07-05 11:00 | NUR ---
Patient for brief period had Levophed increased to 3mcg/minfor systolic less than 100 and MAP< 65. O2 at 2L and sats mid to low 90%'s. He is a little clearer and has tolerated liquids well. Remains SB 50-60's.
--- NOTE | 2019-07-05 14:02 | NUR ---
Patient family by and talked with Dr Boyd. He is up to bathroom with assist. He is communacating better. He was a one assist with ambulation. Levophed on standby for systolics 130's, HR 60's. Continues to tolerate liquids with out cough or signs of aspiration.
--- NOTE | 2019-07-05 16:22 | NUR ---
Patient has been awake and talkitive, lots of family in room. dr Burnett by and stated to advance diet as tolerated and he has had pudding. VSS. Levophed remains off and Protonix 10ml will be on for another 24 hrs. Patient still a little shaky and had some concerns he is not immediately better. No other significant changes.
--- NOTE | 2019-07-05 18:17 | NUR ---
Rechecked Hgb and dropped to 6.9 from 7[address] Boyd and he wanted 1 PRBC infused, checked temp and was 100.9 and gave tylenol and fan at bedside. Started PRBC at 1810. He got prior to admin and had small dark stool and 200ml urine. He was one person transfer to and from bathroom. He is 97% Ra and HR low 100's and systolics 130's.
--- NOTE | 2019-07-05 21:52 | NUR ---
BLOOD TRANSFUSION COMPLETE. PT WATCHING TV. VSS. NO COMPLAINTS. PT VERBALIZES APPRECIATION FOR HOSPITAL STAFF FREQUENTLY.
--- NOTE | 2019-07-06 02:35 | NUR ---
PT OUT OF BED. USING WALKER, PT WALKED IN PLACE FOR APPRX 10 MINUTES. PT TALKED FULL SENTENCES ENTIRE TIME AND TOLERATED WELL. PT BACK INTO BED. CALL LIGHT WITHIN REACH. VSS.
[2019-07-06 03:23] LABS: BASOPHILS ABSOLUTE AUTO 0.01 K/mm3 (0.00-0.23); BASOPHILS PERCENT AUTO 0 % (0-2); EOSINOPHILS ABSOLUTE AUTO 0.01 K/mm3 (0.00-0.68); EOSINOPHILS PERCENT AUTO 0 % (0-6); Hematocrit 21.6 % (37.0-53.0); Hemoglobin 7.2 g/dL (13.5-17.5); IMMATURE GRAN PERCENT AUTO 2 % (0-1); LYMPHOCYTES ABSOLUTE AUTO 1.74 K/mm3 (0.84-5.20); LYMPHOCYTES PERCENT AUTO 37 % (21-46); MONOCYTES ABSOLUTE AUTO 0.51 K/mm3 (0.16-1.47); MONOCYTES PERCENT AUTO 11 % (4-13); Mean Corpuscular HGB 32.3 pg (26.0-34.0); Mean Corpuscular HGB Conc 33.3 g/dL (31.5-36.5); Mean Corpuscular Volume 97 fL (80-100); Mean Platelet Volume 9.9 fL (9.1-12.4); NEUTROPHILS PERCENT AUTO 49 % (41-73); NRBC ABSOLUTE 0.56 K/mm3 (0.00-0.02); Platelet Count 105 K/mm3 (150-400); RDW Coefficient Variation 15.9 % (11.7-14.2); RDW Standard Deviation 54.3 fL (35.1-46.3); Red Blood Cell Count 2.23 M/mm3 (4.30-5.90); White Blood Cell Count 4.67 K/mm3 (4.00-11.30)
[2019-07-06 03:41] LABS: Alanine Aminotransfer (ALT/SGP 25 U/L (12-78); Albumin/Globulin Ratio 0.8 (0.8-1.8); Alk Phos 33 U/L (50-136); Anion Gap 9 mmol/L (6-16); Aspartate Aminotrans (AST/SGOT 35 U/L (12-37); Bilirubin, Total 0.5 mg/dL (0.1-1.0); Blood Urea Nitrogen 16 mg/dL (8-24); Bun/Creatinine Ratio 21.5 (12.0-20.0); CO2, Blood 23 mmol/L (21-32); Calcium, Blood 7.3 mg/dL (8.5-10.1); Chloride, Blood 110 mmol/L (98-108); Creatinine, Blood 0.74 mg/dL (0.60-1.20); Globulin, Blood 2.5 g/dL (2.2-4.0); Glomerular Filtration Rate >60 (60-); Glucose, Blood 171 mg/dL (70-99); Potassium, Blood 3.7 mmol/L (3.5-5.5); Sodium, Blood 142 mmol/L (136-145); Total Protein, Blood 4.5 g/dL (6.4-8.2)
--- NOTE | 2019-07-06 05:38 | NUR ---
PT ASSISTED UP TO TOILET USING WALKER. TOLERATED WELL.
--- NOTE | 2019-07-06 05:55 | NUR ---
PT SITTING UP IN CHAIR WATCHING TV. VSS. CALL LIGHT WITHIN REACH.
--- NOTE | 2019-07-06 07:48 | NUR ---
Recieved report from Betty GILLESPIE. Patient sitting up in a chair and awake and able to communicate his needs. He denies any current need for pain intervention or has any current pain. He is on RA and sats 94%. He has PICC line in RICHA and dressing intact and site WNL's and is infusing Protonix 10ml/hr and NS TKO at 10ml/hr. He also has PowerGlide in CECI dressing intact and site WNL's flushed and SL'd. He is a SBA in room with ambulation r/t weakness and lines and tubes. He has TEDS to bilateral LE's. Patient am cbg 142 and no coverage needed and is sitting up in bed starting breakfast.
--- NOTE | 2019-07-06 10:16 | NUR ---
Dr Burnett and Dr Ortega have been by to see patient. He is now PCU status and awaiting transfer. He transfered to bathroom with SBA and tolerated well. He remains on RA and sats 96%. VSS.
--- NOTE | 2019-07-06 14:48 | NUR ---
Patient recieved room in PCU and will be calling report. He has been SBA assist. VSS. He remains on RA and sats mid 90%'s. Called Dr Ortega and changed IV Protonix to PO 40mg BID. No other significant changes. reviewed prison paperwork with him so he understands going back to prison on his own will.
--- NOTE | 2019-07-06 16:36 | NUR ---
ARRIVAL PT ARRIVED TO UNIT APPROX. 1600. PT A&OX4. PT ABLE TO AMBULATE WITH SBA TO CHAIR FROM WHEELCHAIR. ASSESSMENT FINDINGS NOTED TO BE UNCHANGED FROM MORNING ASSESSMENT. PT DENIES ANY DIZZINESS, LIGHTHEADEDNESS OR PAIN. PT REPORTS FEELINGS GOOD. PT SITTING UP IN CHAIR, CALL LIGHT IN REACH AND PT DENIES ANY NEEDS WILL CONTINUE TO MONITOR.
--- NOTE | 2019-07-06 18:39 | NUR ---
SHIFT SUMMARY PT PLEASANT, COOPERATIVE AND USES CALL LIGHT APPROPRIATELY. PT REMAINS A&OX4. PT VITAL SIGNS STABLE. ASSESSMENT FINDINGS REMAIN UNCHANGED SINCE ARRIVAL. PT ABLE TO SIT UP AND HAVE DINNER AND TOLERATED WELL. PT ABLE TO WALK AROUND ROOM WITH STAFF AND TOLEARTED WELL. PT REPROTS BEING VERY EXCITED TO SEE HIS DOG THAT HIS FRIEND IS BRINGING IN. PT UP IN CHAIR AT THIS TIME. BED IN LOW POSITION, CALL LIGHT IN REACH AND PT DENIES ANY NEEDS AT THIS TIME. WILL CONTINUE TO MONITOR UNTIL HANDOFF TO NIGHTSHIFT RN.
[2019-07-07 01:16] LABS: Hematocrit 24.9 % (37.0-53.0); Hemoglobin 8.3 g/dL (13.5-17.5); Mean Corpuscular HGB 31.1 pg (26.0-34.0); Mean Corpuscular HGB Conc 33.3 g/dL (31.5-36.5); Mean Corpuscular Volume 93 fL (80-100); Mean Platelet Volume 10.1 fL (9.1-12.4); NRBC ABSOLUTE 0.54 K/mm3 (0.00-0.02); NRBC Auto 9.7 /100 WBC (0.0-0.2); Platelet Count 117 K/mm3 (150-400); RDW Coefficient Variation 17.2 % (11.7-14.2); RDW Standard Deviation 54.4 fL (35.1-46.3); Red Blood Cell Count 2.67 M/mm3 (4.30-5.90); White Blood Cell Count 5.59 K/mm3 (4.00-11.30)
[2019-07-07 01:30] LABS: Albumin, Blood 2.3 g/dL (3.4-5.0); Anion Gap 5 mmol/L (6-16); Blood Urea Nitrogen 10 mg/dL (8-24); Bun/Creatinine Ratio 14.8 (12.0-20.0); CO2, Blood 28 mmol/L (21-32); Calcium, Blood 7.6 mg/dL (8.5-10.1); Chloride, Blood 108 mmol/L (98-108); Creatinine, Blood 0.67 mg/dL (0.60-1.20); Glomerular Filtration Rate >60 (60-); Glucose, Blood 121 mg/dL (70-99); Phosphorus, Blood 2.3 mg/dL (2.5-4.9); Potassium, Blood 3.3 mmol/L (3.5-5.5); Sodium, Blood 141 mmol/L (136-145)
--- NOTE | 2019-07-07 05:57 | NUR ---
SHIFT SUMMARY PATIENT VERY PLEASENT AND COOPERATIVE THROUGHOUT THE NIGHT. ONE UNIT OF PRBC'S PROVIDED PER ORDERS, PATIENT APPEARED TO TOLERATE IT WELL. PATIENT APPEARED TO NAP ON AND OFF THROUGHOUT MOST OF THE NIGHT. THIS MORNING PATIENT STATES THAT HE DOES NOT FEEL WEAK. PATIENT CURRENTLY APPEARS TO BE SLEEPING IN BED. WILL CONTINUE TO MONITOR PATIENT AND REPORT TO LEROY GILLESPIE.
[2019-07-07 06:48] LABS: BASOPHILS ABSOLUTE AUTO 0.01 K/mm3 (0.00-0.23); BASOPHILS PERCENT AUTO 0 % (0-2); EOSINOPHILS ABSOLUTE AUTO 0.07 K/mm3 (0.00-0.68); EOSINOPHILS PERCENT AUTO 1 % (0-6); Hematocrit 23.1 % (37.0-53.0); Hemoglobin 7.7 g/dL (13.5-17.5); IMMATURE GRAN ABSOLUTE AUTO 0.18 K/mm3 (0.00-0.10); IMMATURE GRAN PERCENT AUTO 3 % (0-1); LYMPHOCYTES ABSOLUTE AUTO 2.14 K/mm3 (0.84-5.20); LYMPHOCYTES PERCENT AUTO 37 % (21-46); MONOCYTES PERCENT AUTO 9 % (4-13); Mean Corpuscular HGB Conc 33.3 g/dL (31.5-36.5); Mean Corpuscular Volume 93 fL (80-100); NEUTROPHILS ABSOLUTE AUTO 2.86 K/mm3 (1.96-9.15); NEUTROPHILS PERCENT AUTO 50 % (41-73); NRBC Auto 8.7 /100 WBC (0.0-0.2); Platelet Count 107 K/mm3 (150-400); RDW Coefficient Variation 17.3 % (11.7-14.2); RDW Standard Deviation 55.8 fL (35.1-46.3); Red Blood Cell Count 2.48 M/mm3 (4.30-5.90); White Blood Cell Count 5.76 K/mm3 (4.00-11.30)
--- NOTE | 2019-07-07 07:42 | NUR ---
SWOLLEN RIGHT UE RIGTH US WITH PICC LINE NOTICIABLY SWOLLEN AND WARM TO THE TOUCH COMPARED TO LEFT. ELEVATED PT TEMPERATURE NOTED. CALLED D R ISTRATE FOR ORDERS. CONTINUE POT.
--- NOTE | 2019-07-07 10:22 | NUR ---
DVT DR MORENO HAD THIS NURSE CONSULT DR GRAVES. TALKED WITH DR GRAVES IN PERSON. DR GRAVES REQUESTED A CALL TO DR TORRES. THIS NURSE CALLED DR TORRES TO ASK FOR GUIDANCE ON RIGHT UE DVT. DR TORRES REQUESTED A CALL TO DR PIÑA TO ASK ABOUT WHETHER TO ANTICOAGULATE PT. DR PIÑA WAS CALLED AND NOTIFIED OF THE DVT. DR PIÑA WANTS BLOOD COUNT AT 1130 AND RESULTS CALLED TO HIM TO DECIDE WHETHER TO ANTI COAGULATE PT. DR TORRES REALTED THAT FOR A THROMBETOMY THE PT STILL NEEDS TO BE ANTICOAGULATED. DR TORRES DID OK REMOVEL OF PICC LINE. CONTINUE POT.
--- NOTE | 2019-07-07 10:41 | NUR ---
PICC LINE REMOVAL RIGHT UE PICC LINE REMOVAL OK'D BY DR TORRES. PT EDUCATED ABOUT REMOVAL PROCESS AND RISK. ARDEN RN IN ATTENDANCE IN CASE OF PT DISTRESS. LINE REMOVED SLOWLY AND GENTLY. PRESSURE HELD MANUALLY FOR SEVERAL MINUTES. PRESSURE DRESSING ABBPLIED WITH 2X2 AND COBAN. NO BLEEDING NOTED. CONTINUE POT.
[2019-07-07 11:20] LABS: Hematocrit 23.6 % (37.0-53.0); Hemoglobin 7.7 g/dL (13.5-17.5)
[2019-07-07 12:43] LABS: International Normalized Ratio 1.03; Prothrombin Time Results 10.9 Sec (9.7-11.5)
--- NOTE | 2019-07-07 14:18 | NUR ---
HEPARIN GTT HEPARIN GTT STARTED PER PHARMACY DIRECTION. NO BOLUS GIVEN. IRON DEXTRAN GIVEN PRIOR TO HEPARIN STARTING PER PHARMACY DIRECTION D/T INCOMPATABILITY WITH PROTONIX AND HEPARIN. PT HAS A POWER GLIDE LEFT UE AND STARTED A PERIPHERAL WITH ULTRA SOUND. 20G VERY POSITIONAL. AWAITING U/S TO CHECK LEFT UE FOR BLOOD CLOTS D/T SWELLING NOTED IN FA. CONTINUE POT.
--- NOTE | 2019-07-07 15:43 | NUR ---
DVT PT RIGHT UE IS STABLE. CAP REFILL BRISK TO FINGERS. HAND AND FINGERS WARM TO TOUCH. PULSE PLETH TO RIGHT HAND STRONG. PT HAS DENIED PAIN OR NUMBNESS TO RIGHT UE. HEPARING GTT INFUSING PER ORDER. NEXT H/H SCHEDULED FOR 1600. NO BLOODY STOOL NOTED OR MELENA. CONTINUE POT.
[2019-07-07 16:03] LABS: Hematocrit 21.8 % (37.0-53.0); Hemoglobin 7.3 g/dL (13.5-17.5)
--- NOTE | 2019-07-07 16:13 | NUR ---
H/H RESULT H/H RESULTS CALLED TO DR MORENO. ORDER RECEIVED. CONTINUE POT.
[2019-07-07 17:58] LABS: Hematocrit 24.4 % (37.0-53.0); Hemoglobin 8.1 g/dL (13.5-17.5)
--- NOTE | 2019-07-07 18:06 | NUR ---
LEFT UE PICC PT TRANSFERED VIA W/C TO ICU 14 FOR PICC LINE PLACEMENT WITH PARIS GILLESPIE. PT AGREEABLE TO PROCEDURE. CONTINUE POT.
--- NOTE | 2019-07-07 21:23 | NUR ---
UPDATE DR BAIN CALLED AND NOTIFIED THAT PATIENT HAS BEEN HAVING PERIODS OF FREQUENT PVC'S WELL 3 RUNS OF 6-7 BEATS OF VTACH. PATIENT HAS BEEN ASYMPTOMATIC. ORDERS RECIEVED.
[2019-07-07 21:48] LABS: Hematocrit 22.5 % (37.0-53.0); Hemoglobin 7.5 g/dL (13.5-17.5)
[2019-07-07 22:03] LABS: Magnesium, Blood 1.6 mg/dL (1.6-2.4); Potassium, Blood 3.5 mmol/L (3.5-5.5)
--- NOTE | 2019-07-07 23:00 | NUR ---
DR BAIN UPDATED DR BAIN UPDATED ON MAG AND POTASSIUM LAB RESULTS. ORDERS RECIEVED. DR BAIN ALSO UPDATED ON PATIENT'S HGB LEVEL. DR BAIN STATED IT WAS FINE TO WAIT UNTIL [facility]ORING LABS TO RECHECK THE H&H.
[2019-07-08 03:27] LABS: BASOPHILS ABSOLUTE AUTO 0.02 K/mm3 (0.00-0.23); BASOPHILS PERCENT AUTO 0 % (0-2); EOSINOPHILS ABSOLUTE AUTO 0.12 K/mm3 (0.00-0.68); EOSINOPHILS PERCENT AUTO 2 % (0-6); Hemoglobin 7.6 g/dL (13.5-17.5); IMMATURE GRAN ABSOLUTE AUTO 0.25 K/mm3 (0.00-0.10); IMMATURE GRAN PERCENT AUTO 4 % (0-1); LYMPHOCYTES ABSOLUTE AUTO 2.42 K/mm3 (0.84-5.20); LYMPHOCYTES PERCENT AUTO 36 % (21-46); MONOCYTES ABSOLUTE AUTO 0.59 K/mm3 (0.16-1.47); MONOCYTES PERCENT AUTO 9 % (4-13); Mean Corpuscular HGB 31.7 pg (26.0-34.0); Mean Corpuscular Volume 96 fL (80-100); Mean Platelet Volume 10.3 fL (9.1-12.4); NEUTROPHILS ABSOLUTE AUTO 3.33 K/mm3 (1.96-9.15); NEUTROPHILS PERCENT AUTO 49 % (41-73); NRBC ABSOLUTE 0.42 K/mm3 (0.00-0.02); NRBC Auto 6.2 /100 WBC (0.0-0.2); Platelet Count 117 K/mm3 (150-400); RDW Coefficient Variation 17.5 % (11.7-14.2); White Blood Cell Count 6.73 K/mm3 (4.00-11.30)
[2019-07-08 03:40] LABS: Magnesium, Blood 1.9 mg/dL (1.6-2.4); Potassium, Blood 3.4 mmol/L (3.5-5.5)
[2019-07-08 03:46] LABS: BAND PERCENT MAN 1 % (0-8); BASOPHILS PERCENT MAN 0 % (0-2); EOSINOPHILS ABSOLUTE MAN 0.13 K/mm3 (0.00-0.68); EOSINOPHILS PERCENT MAN 2 % (0-6); LYMPHOCYTES ABSOLUTE MAN 2.35 K/mm3 (0.84-5.20); LYMPHOCYTES PERCENT MAN 35 % (21-46); METAMYELOCYTE ABSOLUTE MAN 0.06 K/mm3 (0.00-0.00); METAMYELOCYTE PERCENT MAN 1 % (0-0); MONOCYTES ABSOLUTE MAN 0.33 K/mm3 (0.16-1.47); MONOCYTES PERCENT MAN 5 % (4-13); MYELOCYTE ABSOLUTE MAN 0.13 K/mm3 (0.00-0.00); MYELOCYTE PERCENT MAN 2 % (0-0); SEG NEUTROPHILS PERCENT MAN 54 % (41-73); TOTAL CELLS COUNTED 100
--- NOTE | 2019-07-08 05:09 | NUR ---
UPDATE DR BOUDREAUX NOTIFIED THAT PATIENT CONTINUES TO HAVE FREQUENT RUNS OF VTACH. DR BOUDREAUX ALSO UPDATED ON PATIENT'S POTASSIUM AND MAG LEVELS THIS AM. DR BOUDREAUX STATED THAT HE WOULD ENTER ORDERS ON THIS PATIENT.
--- NOTE | 2019-07-08 06:19 | NUR ---
SHIFT SUMMERY PATIENT VERY PLEASENT AND COOPERATVE WITH CARE LAST NIGHT. PATIENT APPEARED TO NAP WELL ON AND OFF THROUGHOUT THE NIGHT. VITAL SIGNS CHARTED. PATIENT REPROTS HE FEELS THE SWELLING IN HIS RIGHT HAND HAS STARTED TO DECREASE. PATIENT CURRENTLY RESTING IN BED AND WATCHING TV. WILL CONTINUE TO MONITOR PATIENT AND REPORT TO ONCOMING RN.
--- NOTE | 2019-07-08 08:39 | NUR ---
RUNS OF V TACH PT EXPERIENCING AN INCREASE IN RUNS OF V TACH. RANGING FROM 3-9 BEATS. PT NON SYMPTOMATIC. DR. MORENO NOTIFIED. STAT MAG ORDERED. STAT EKG COMPLETED. BRIDAL CONSULTANT DR. WATSON NOTIFIED OF EVENT. WILL CONTINUE TO MONITOR.
[2019-07-08 15:44] LABS: Hematocrit 24.6 % (37.0-53.0); Mean Corpuscular HGB 30.9 pg (26.0-34.0); Mean Corpuscular HGB Conc 32.5 g/dL (31.5-36.5); Mean Corpuscular Volume 95 fL (80-100); Mean Platelet Volume 10.4 fL (9.1-12.4); NRBC ABSOLUTE 0.28 K/mm3 (0.00-0.02); NRBC Auto 4.9 /100 WBC (0.0-0.2); Platelet Count 127 K/mm3 (150-400); RDW Coefficient Variation 17.6 % (11.7-14.2); RDW Standard Deviation 56.5 fL (35.1-46.3); Red Blood Cell Count 2.59 M/mm3 (4.30-5.90); White Blood Cell Count 5.77 K/mm3 (4.00-11.30)
--- NOTE | 2019-07-08 16:49 | NUR ---
BP 195/98 ISTRATE NOTIFIED OF ELEVATED BP. HYDRALIZINE PRN ORDERED. 10MG GIVEN ORDERED. WILL RECHECK & CONTINUE TO MONITOR.
--- NOTE | 2019-07-08 17:47 | NUR ---
BP 188/72 10MG HYDRALAZINE GIVEN. BP DECREASED TO 188/72. ISTRATE NOTIFIED. HYDRALAZINE ORDER CHANGED TO 10-20MG. WILL GIVE A SECOND DOSE OF 10MG HYDRALAZINE. WILL CONTINUE TO MONITOR.
--- NOTE | 2019-07-08 18:08 | NUR ---
SHIFT SUMMARY NO FURTHER RUNS OF VTACH THIS SHIFT. SEE PREVIOUS NOTE ABOUT VTACH RUNS. PT SEEN BY CARDIOLOGY & GI THIS SHIFT. PT CONTINUED ON PROTONIX DRIP. HEPARIN DRIP CONTINUES WELL. INFUSION RATE AT 14.5. AMIO CHANGED BACK TO PO. THIS AFTERNOON PT HAS BEEN HYPERTENSIVE IN THE 180-190S SBP. SEE PREVIOUS NOTE. SECOND DOSE OF HYDRALAZINE GIVEN IV. WILL RECHECK & CONTINUE TO MONITOR. PT STATES HE FEELS SON ANXIETY, BUT DOES NOT WANT ANY MEDICATION FOR IT AT THIS TIME. PICC LINE DRESSING CONTINUES TO SEEM SLOWLY. DRESSING CHANGED. STERILE GAUZE PLACED UNDER DRESSING FOR PRESSURE/ABSORPTION. PT HAS HAD SLIGHT TEMP ALL SHIFT. PT CURRENTLY AT 99.3. OTHER VITALS STABLE. NO OTHER CHANGES IN ASSESSMENT AT THIS TIME. VSTrina. AWARE OF PT CONDITION. WILL CONTINUE TO MONITOR UNTIL TURNOVER IS COMPLETE.
--- NOTE | 2019-07-08 18:31 | NUR ---
PT ANXIOUS PT INCREASE IN ANXIETY THIS EVENING. PT STATES HE "JUST FEELS GRUMMY" WHEN ASKED TO DISCRIBE THIS. HE STATES "I FEEL WORN DOWN". PT ASKED FOR ANXIETY MEDICATION. 0.5 ATIVAN GIVEN ORDERED. NO OTHER CHANGES IN ASSESSMENT AT THIS TIME. WILL CONTINUE TO MONITOR.
--- NOTE | 2019-07-08 21:54 | NUR ---
PCU NIGHTSHIFT ASSUMED CARE OF PT APPROX. 1900. PT A&OX4. ASSESSMENT COMPLETED. VITAL SIGNS STABLE. ALTHOUGH TEMPARTURE SLIGHTLY ELEVATED, PRN TYLENOL GIVEN FOR THIS. BLOOD PRESSURE ELEVATED. PRN MEDICAITON FOR BLOOD PRESSURE GIVEN WELL. WILL CONTINUE TO MONITOR BOTH. PT DENIES ANY PAIN. RIGHT ARM SWELLING NOTED. SHORTLY AFTER START OF SHIFT PT REPROTS THAT HE WANTED TO LEAVE. EDUATED PT ON RISKS OF LEAVING AMA, AND POSSIBLE COMPLICATIONS. TALKED WITH PT ABOUT WHY HE WANTED TO GO. AFTER OUR CONVERSATION PT AGREED TO STAY AT LEAST UNTIL EVENING. WORKED TO GET PT COMFORTABLE TO TRY AND GET SOME REST THIS EVENING. PT STATED THIS MIGHT HELP HIM WELL. BED IN LOW POSITION, CALL LIGHT IN REACH AND PT DENIES ANY NEEDS.
[2019-07-09 04:04] LABS: Hematocrit 28.3 % (37.0-53.0); Hemoglobin 9.2 g/dL (13.5-17.5); Mean Corpuscular HGB 31.1 pg (26.0-34.0); Mean Corpuscular HGB Conc 32.5 g/dL (31.5-36.5); Mean Corpuscular Volume 96 fL (80-100); Mean Platelet Volume 10.5 fL (9.1-12.4); NRBC ABSOLUTE 0.23 K/mm3 (0.00-0.02); NRBC Auto 3.5 /100 WBC (0.0-0.2); Platelet Count 146 K/mm3 (150-400); RDW Coefficient Variation 17.9 % (11.7-14.2); RDW Standard Deviation 58.6 fL (35.1-46.3); Red Blood Cell Count 2.96 M/mm3 (4.30-5.90); White Blood Cell Count 6.66 K/mm3 (4.00-11.30)
[2019-07-09 04:21] LABS: Anion Gap 8 mmol/L (6-16); Blood Urea Nitrogen 8 mg/dL (8-24); Bun/Creatinine Ratio 13.2 (12.0-20.0); CO2, Blood 27 mmol/L (21-32); Calcium, Blood 7.7 mg/dL (8.5-10.1); Chloride, Blood 107 mmol/L (98-108); Creatinine, Blood 0.61 mg/dL (0.60-1.20); Glomerular Filtration Rate >60 (60-); Glucose, Blood 101 mg/dL (70-99); Magnesium, Blood 1.9 mg/dL (1.6-2.4); Potassium, Blood 3.6 mmol/L (3.5-5.5); Sodium, Blood 142 mmol/L (136-145)
[2019-07-09 05:10] LABS: BASOPHILS ABSOLUTE AUTO 0.02 K/mm3 (0.00-0.23); BASOPHILS PERCENT AUTO 0 % (0-2); EOSINOPHILS ABSOLUTE AUTO 0.15 K/mm3 (0.00-0.68); EOSINOPHILS PERCENT AUTO 2 % (0-6); Hematocrit 26.4 % (37.0-53.0); Hemoglobin 8.6 g/dL (13.5-17.5); IMMATURE GRAN ABSOLUTE AUTO 0.22 K/mm3 (0.00-0.10); IMMATURE GRAN PERCENT AUTO 4 % (0-1); LYMPHOCYTES ABSOLUTE AUTO 1.59 K/mm3 (0.84-5.20); LYMPHOCYTES PERCENT AUTO 26 % (21-46); MONOCYTES ABSOLUTE AUTO 0.58 K/mm3 (0.16-1.47); MONOCYTES PERCENT AUTO 9 % (4-13); Mean Corpuscular HGB 31.3 pg (26.0-34.0); Mean Corpuscular HGB Conc 32.6 g/dL (31.5-36.5); Mean Corpuscular Volume 96 fL (80-100); NEUTROPHILS PERCENT AUTO 59 % (41-73); NRBC ABSOLUTE 0.17 K/mm3 (0.00-0.02); NRBC Auto 2.8 /100 WBC (0.0-0.2); Platelet Count 143 K/mm3 (150-400); RDW Coefficient Variation 17.9 % (11.7-14.2); RDW Standard Deviation 58.2 fL (35.1-46.3); Red Blood Cell Count 2.75 M/mm3 (4.30-5.90); White Blood Cell Count 6.16 K/mm3 (4.00-11.30)
--- NOTE | 2019-07-09 06:33 | NUR ---
SHIFT SUMMARY PT PLEASANT, COOPERATIVE AND USES CALL LIGHT APPRIATELY. AFTER INTIALLY WANTING TO LEAVE AMA. PT DID NOT BRING THIS UP AGAIN. PT WAS ABLE TO SLEEP FOR MOST OF SHIFT. PT APPRICIATIVE OF STAFF. PT CONTINUED TO EPRESS CONCERNS THAT HE FEELS HE IS NOT GETTING BETTER AND THAT HE IS DYING. AND SINCE HE IS DYING HE WANTS TO JUST GO HOME AND DYE. RE EDUCATED PT NEEDED. TALKED ABOUT RISKS OF LEAVING. AND PT AGREED TO MAKE A DECISION IN THE MORNING AFTER SLEEPING SOME. TEMPERATURE INCREASED AT TIMES AND PRN TYLENOL GIVEN PER EMAR TO HELP WITH THIS. PT INCREASED RESPIRATORY RATE AT TIMES WHICH INCREASED WITH INCREASED ANXIETY. THIS DECREASED WHEN ANXIETY LEVELS DECREASED. PT CURRENTLY IN ROOM SLEEPING, BED IN LOW POSITION, CALL LIGHT IN REACH AND PT DENIES ANY NEEDS AT THIS TIME. WILL CONTINUE TO MONITOR UNTIL HANDOFF TO DAYSHIFT RN.
--- NOTE | 2019-07-09 11:05 | NUR ---
PT HAD AN APPROX 1 MIN RUN OF VTACH, VSS, PT ASSYMPTOMATIC. PAGED DR AVALOS, WILL CONTINUE TO MONITOR.
--- NOTE | 2019-07-09 17:45 | NUR ---
PT BACK TO ROOM FROM DEVELOPMENT EXECUTIVE AT 1730. RIGHT GROIN SITE COVERED IN GAUZE AND TEGADERM, RED DRAINAGE NOTED, PER REPORT THAT HAS BEEN THEIR SINCE MANUAL PRESSURE HELD. OUTLINE WITH BLACK MARKER. RIGHT GROIN, SOFT AND TENDER. NO SHADOWING OR BRUISING NOTED. PT DENIES NUMBNESS/TINGLING IN RLE. PULSE STRONG. VSS. WILL CONTINUE TO MONITOR.
--- NOTE | 2019-07-09 19:37 | NUR ---
SHIFT SUMMARY PT A&Ox4. FORGETFUL AT TIMES. PT RESTING IN BED THIS EVENING, UNDERSTANDING HE IS ON BEDREST DUE TO RIGTH GROIN SITE. SHEET RESTRAINT PLACED ON RLE PER ORDERS. NO CHANGES TO RIGHT GROIN SITE NOTED. PT DENIES PAIN, REPORTS TENDERNESS ON PALPATION. NO BRUISING OR SHADOWING NOTED. PT DENIES PAIN AND NAUSEA. PT ANXIOUS ABOUT PROCEDURE. PT SOB, O2 SATURATES 88-91% AFTER PROCEDURE, 2L O2 VIA NC PLACED, SPO2 92-94%. PT RECEIVING IV ANTIBIOTICS, IV IRON INFUSION. IV HEPARIN D/C FOR ANGIO THIS AFTERNOON, AFTER ANGIO COMPLTED, CALLED DR AVALOS TO CLARIFY ANTICOAGULENTS FOR RUE DVT, DR AVALOS TO CALL IN LATER TONIGHT TO RESTART HEPARIN. PLANS TO PLACE ICD IN MORNING. PT EDUCATED ON POST ANGIO BEDREST AND ACTIVITY RESTRICTIONS. PT EDUCATED THAT HE WILL NEED TO STAY FLAT FOR 4 HOURS THEN WE WILL GRADUALLY RAISE HIM UP. VSS. NO OTHER ACUTE CHANGES NOTED. REPORT GIVEN TO ONCADALID GILLESPIE
--- NOTE | 2019-07-09 22:24 | NUR ---
ASSUMED CARE OF PATIENT AT APPROXIMATELY 1900 FROM TOMY Peguero RN. PATIENT ALERT AND ORIENTED X4; VERY ANXIOUS; PATIENT REPORTS HE IS VERY WORRIED ABOUT GETTING A CATHETER "UP THERE"; PATIENT URINATING INTO URINAL BEDSIDE WITHOUT MOVING; FOLLOWING DIRECTIONS AT START OF SHIFT. PATIENT DENIES PAIN, NUMBNESS, TINGLING, DIZZINESS AND NAUSEA. S/P ANGIO SITE TO RIGHT GROIN SITE WITH SOME DISCHARGE NOTED; OUTLINED WITH PEN BY JANN RN. SITE IS SOFT AND NONTENDER. PATIENT ANXIOUS ABOUT HAVING BM AND NOT BEING AMBLE TO MOVE; EDUCATED ON BEDPAN AND S/P ANGIO RESTRICTIONS. PATIENT REQUESTED ANXIETY MEDICATION. DR. JOHNS CALLED AT 2154 FOR UPDATE ON GROIN SITE; NO CHANGES; NOTIFIED THAT PATIENT HAD TURNED ON SIDE BY HIMSELF MINUTES BEFORE HE CALLED; DR. AVALOS REPORTED HE WILL PUT AN ORDER TO RESTARTED HEPARIN GTT. PATIENT EDUCATED REPEATEDLY ON NOT MOVING OR FLEXING GROIN. PATIENT REPORTED TO BAR CAPTAINJOSE MIGUEL Strickland THAT HE MUST HAVE DONE IT IN HIS SLEEP. PICC INFUSING IVF PER ORDER. HOB RAISED TO 15% AT 2119; NO CHANGES NOTED. NSR W/ BBB ON TELE; OXYGEN SATURATION ABOVE 90% ON 2LPM VIA NC. PATIENT CURRENTLY RESTING IN BED; CALL LIGHT IN REACH; BED IN LOWEST POSISTION; BED ALARM ON; WILL CONTINUE TO MONITOR AND ASSESS UNTIL END OF SHIFT.
--- NOTE | 2019-07-09 23:24 | NUR ---
PATIENT REPORTS FRUSTRATION OF NOT BEING ABLE TO TURN SIDE TO SIDE TO SLEEP. PATIENT REPORTS HE DOESNT SLEEP ON HIS BACK AT HOME BECAUSE IT IS PAINFUL. PATIENT REPORTS THAT IF HE HAD A RIDE AVAILABLE HE WOULD LEAVE TONIGHT. PATIENT EDUCATED ON RISKS OF LEAVING; VERABLIZED UNDERSTANDING. CHEMICAL TECHNICIAN NONI ALICIAATED PATIENT. PATIENT BOOSTED IN BED AND MADE MORE COMFORABLE. HEPARIN GTT STARTED PER ORDER. PATIENT RESTING IN BED. WILL CONTINUE TO MONITOR AND ASSESS UNTIL END OF SHIFT.
[2019-07-10 05:03] LABS: BASOPHILS ABSOLUTE AUTO 0.02 K/mm3 (0.00-0.23); BASOPHILS PERCENT AUTO 0 % (0-2); EOSINOPHILS ABSOLUTE AUTO 0.15 K/mm3 (0.00-0.68); EOSINOPHILS PERCENT AUTO 3 % (0-6); Hematocrit 27.9 % (37.0-53.0); Hemoglobin 8.9 g/dL (13.5-17.5); IMMATURE GRAN ABSOLUTE AUTO 0.12 K/mm3 (0.00-0.10); IMMATURE GRAN PERCENT AUTO 2 % (0-1); LYMPHOCYTES ABSOLUTE AUTO 1.89 K/mm3 (0.84-5.20); LYMPHOCYTES PERCENT AUTO 31 % (21-46); MONOCYTES ABSOLUTE AUTO 0.62 K/mm3 (0.16-1.47); MONOCYTES PERCENT AUTO 10 % (4-13); Mean Corpuscular HGB 31.4 pg (26.0-34.0); Mean Corpuscular HGB Conc 31.9 g/dL (31.5-36.5); Mean Corpuscular Volume 99 fL (80-100); Mean Platelet Volume 9.5 fL (9.1-12.4); NEUTROPHILS ABSOLUTE AUTO 3.25 K/mm3 (1.96-9.15); NEUTROPHILS PERCENT AUTO 54 % (41-73); NRBC ABSOLUTE 0.05 K/mm3 (0.00-0.02); NRBC Auto 0.8 /100 WBC (0.0-0.2); Platelet Count 167 K/mm3 (150-400); RDW Coefficient Variation 18.4 % (11.7-14.2); RDW Standard Deviation 62.6 fL (35.1-46.3); Red Blood Cell Count 2.83 M/mm3 (4.30-5.90); White Blood Cell Count 6.05 K/mm3 (4.00-11.30)
[2019-07-10 05:18] LABS: Albumin, Blood 2.1 g/dL (3.4-5.0); Anion Gap 6 mmol/L (6-16); Blood Urea Nitrogen 6 mg/dL (8-24); Bun/Creatinine Ratio 8.6 (12.0-20.0); CHOL/HDL RATIO 2.9; CO2, Blood 27 mmol/L (21-32); Calcium, Blood 7.8 mg/dL (8.5-10.1); Chloride, Blood 108 mmol/L (98-108); Cholesterol 94 mg/dL (50-200); Glomerular Filtration Rate >60 (60-); Glucose, Blood 92 mg/dL (70-99); HDL Cholesterol 32 mg/dL (>39); LDL/HDL RATIO 1.4; Low Density Lipoprotein Chol 45 mg/dL (0-110); Phosphorus, Blood 3.4 mg/dL (2.5-4.9); Sodium, Blood 141 mmol/L (136-145); Triglycerides 83 mg/dL (30-160); Very Low Density Lipoprot Chol 16 mg/dL (6-32)
--- NOTE | 2019-07-10 06:16 | NUR ---
PATIENT ABLE TO REST ABOUT SIX HOURS LAST NIGHT. MULTIPLE RUNS OF VTAC NOTED; EKG DONE; SEE STRIPS IN CHART. VSS. NO CHANGES TO GROIN SITE. PATIENT HAS BEEN NPO. HEAPRIN GTT PER ORDER. WILL CONTINUE TO MONITOR AND ASSESS UNTIL END OF SHIFT.
--- NOTE | 2019-07-10 07:19 | NUR ---
PT FOUND UP IN BATHROOM DURING REPORT. RIGHT GROIN SITE CHECKED AND CONTINUES TO BE INTACT. PT HAD SOFT FORMED BM, SMALL AMOUNT OF RED AT ONE END OF STOOL. WILL CONTINUE TO MONITOR.
--- NOTE | 2019-07-10 16:50 | NUR ---
SHIFT SUMMARY PT A&Ox4. FORGETFUL AT TIMES. PT ANXIOUS T/O SHIFT, MEDICATED WITH PRN MEDS. PT ANXIOUS AND STATING HE WANTS TO LEAVE AMA, AGAIN DISCUSSED THE RISKS/VS BENEFITS TO LEAVING AMA. PT RESTING IN BED DURING SHIFT, UP TO BATHROOM IND. PT TRANSISTION FROM HEPARIN DRIP TO XARELTO THIS AFTERNOON PER ORDERS FOR DVT IN RUE, LESS SWELLING NOTED THIS SHIFT. RIGHT GROIN SITE, DRESSING INTACT NO CHANGES NOTED. PLANS FOR LIFE VEST OUT PATIENT. VSS. NO OTHER ACUTE CHANGES NOTED DURING SHIFT, WILL CONTINUE TO MONITOR. UNTIL REPORT GIVEN TO ONCOMING RN.
--- NOTE | 2019-07-10 21:23 | NUR ---
UPDATE PATIENT EDUCATED ON RISKS AND BENEFITS OF LEAVING AMA. PATIENT AWARE AND HAS REPEATED BACK THAT IS A POSSIBLE RISK FOR LEAVING, STATES HE IS STILL PLAINNING ON LEAVING. PATIENT PLEASENT AT THIS TIME BUT ADMIT THAT HE WILL BE LEAVING. PATIENT STATES HE HAS A RIDE THAT WILL BE PICKING HIM UP AT AT APPROX [id number]. PATIENT HAS REVIEWED THE AMA FORM AND HAS SIGNED IT. FORM PLACED IN CHART. PATIENT CURRENTLY RESTING IN BED AND WAITING FOR HIS RIDE. WILL CONTINUE TO MONITOR.
--- NOTE | 2019-07-10 22:32 | NUR ---
LEAVING AMA PATIENT'S FRIEND ARRIVED TO GIVE PATIENT A RIDE. PICC LINE AND TELE REMOVED. PATIENT LEFT AT APPROX 2227. SIGNED AMA FORM IN THE FRONT OF PATIENT'S CHART. NURSE PRACTIONER MEGHANA CALLED AND NOTIFIED.
== END 2019-07-10 22:30 | disposition left against medical advice (07) | DRG 377 ==
LOC: ER 05:44 → ICUW 05:45 → ICUE 05:45 → MEDS 21:29 → ICUE 21:52 → PCU 07-03 08:41 → ICUE 07-03 08:41 → PCU 07-06 16:10
PROVIDERS: Emergency Medicine; Internal Medicine; Internal Medicine Critical Care Medicine; Internal Medicine Gastroenterology; Nurse Practitioner Acute Care; Student in an Organized Health Care Education/Training Program; ADMIT Family Medicine
PROC: 0DJ08ZZ Inspection of Upper Intestinal Tract, Via Natural or Artificial Opening Endoscopic (ICD-10-PCS; 2019-07-03)
PROC: 02HV33Z Insertion of Infusion Device into Superior Vena Cava, Percutaneous Approach (ICD-10-PCS; 2019-07-03)
PROC: 30233N1 Transfusion of Nonautologous Red Blood Cells into Peripheral Vein, Percutaneous Approach (ICD-10-PCS; principal; 2019-07-03 12:45)
PROC: 5A1935Z Respiratory Ventilation, Less than 24 Consecutive Hours (ICD-10-PCS; 2019-07-04)
PROC: 0D598ZZ Destruction of Duodenum, Via Natural or Artificial Opening Endoscopic (ICD-10-PCS; 2019-07-04 14:00)
PROC: 3E033XZ Introduction of Vasopressor into Peripheral Vein, Percutaneous Approach (ICD-10-PCS; 2019-07-08)
DX: K26.4 Chronic or unspecified duodenal ulcer with hemorrhage (principal); J96.01 Acute respiratory failure with hypoxia; J69.0 Pneumonitis due to inhalation of food and vomit; I48.92 Unspecified atrial flutter; I82.621 Acute embolism and thrombosis of deep veins of right upper extremity; D62 Acute posthemorrhagic anemia; I42.2 Other hypertrophic cardiomyopathy; I47.2 Ventricular tachycardia; A04.4 Other intestinal Escherichia coli infections; T82.868A Thrombosis due to vascular prosthetic devices, implants and grafts, initial encounter; I50.32 Chronic diastolic (congestive) heart failure; J44.9 Chronic obstructive pulmonary disease, unspecified; F17.210 Nicotine dependence, cigarettes, uncomplicated; I95.9 Hypotension, unspecified; F12.20 Cannabis dependence, uncomplicated; K21.9 Gastro-esophageal reflux disease without esophagitis; Z79.01 Long term (current) use of anticoagulants; E87.6 Hypokalemia
CPT/HCPCS: 0097U; 31720; 36415; 36430; 36569; 51702; 71045; 71046; 74018; 74177; 80047; 80048; 80053; 80061; 80069; 82330; 82550; 82553; 82947; 83036; 83690; 83735; 84100; 84132; 84145; 84443; 84484; 85014; 85018; 85025; 85027; 85610; 85730; 86850; 86900; 86901; 86923; 87040; 87070; 87077; 87147; 87186; 87205; 93005; 93010; 93306; 93458; 93971; 94002; 94003; 96361; 96365-59; 96375; 96375-59; 96376; 97110; 97162; 97165; 97530; 99152; 99285-25; A9270; A9270-GY; C1751; C1769; C1894; C9113; G0378; J0171; J0282; J0330; J0360; J0696; J1430; J1644; J1815; J1940; J2250; J2405; J2704; J2765; J2916; J3010; J3475; J3480; J7030; J7040; J7050; J7060; J7120; P9016; Q9967